=== PATIENT | female | born 1970 | race Hispanic/Latino ===

== ENCOUNTER 2018-01-16 15:45 | Outpatient (CLI) | payer BC | END 2018-01-16 15:46 | disposition home or self-care (01) | LOC: BICMAMMO 15:45 | DX: Z12.31 Encounter for screening mammogram for malignant neoplasm of breast (principal) | CPT/HCPCS: 77063; 77067 ==

== ENCOUNTER 2018-01-27 15:18 | Outpatient (CLI) | payer BC | END 2018-01-27 15:19 | disposition home or self-care (01) | LOC: BICMAMMO 15:18 | DX: Z13.820 Encounter for screening for osteoporosis (principal); Z78.0 Asymptomatic menopausal state | CPT/HCPCS: 77080 ==